=== PATIENT | female | born 1985 | race Two or more races ===

== ENCOUNTER 2019-11-20 22:44 | Inpatient (IN) | payer MEDICAID ==
[~2019-11-20] VITALS: Ht 157.5 cm; Wt 61.2 kg
--- NOTE | 2019-11-20 23:25 | NUR ---
Dr. chavez at bedside for MSE
[2019-11-20] MEDS ORDERED: KETOROLAC TROMETHAMINE 60 MG INJ IM ONE ×2 (23:45→23:48)
[2019-11-20 23:50] LABS: BASOPHILS % (AUTO) 0.3 % (0.0-2.0); EOSINOPHILS # (AUTO) 0.2 K/uL (0.0-0.7); EOSINOPHILS % (AUTO) 2.3 % (0.0-7.0); HEMATOCRIT 38.3 % (31.2-41.9); HEMOGLOBIN 12.7 g/dL (10.9-14.3); LYMPHOCYTES # (AUTO) 2.6 K/uL (20.0-40.0); LYMPHOCYTES % (AUTO) 39.5 % (20.5-51.5); MEAN CORPUSCULAR HEMOGLOBIN 30.5 uug (24.7-32.8); MEAN CORPUSCULAR HGB CONC 33 g/dL (32.3-35.6); MEAN CORPUSCULAR VOLUME 92.1 fL (75.5-95.3); MONOCYTES # (AUTO) 0.4 K/uL (2.0-10.0); MONOCYTES % (AUTO) 5.8 % (0.0-11.0); NEUTROPHILS # (AUTO) 3.5 K/uL (1.8-8.9); NEUTROPHILS % (AUTO) 52.1 % (38.5-71.5); PLATELET COUNT (AUTO) 238 K/uL (179-408); RED BLOOD CELL COUNT(AUTO) 4.15 MIL/uL (3.63-4.92); WHITE BLOOD COUNT (AUTO) 6.7 K/uL (3.8-11.8)
[2019-11-21] LABS: CREATININE 0.6 mg/dL (0.6-1.3); POTASSIUM 3.4 mmol/L (3.5-5.1)
--- NOTE | 2019-11-21 | NUR ---
Madhavi Nursing supervisor paper machine at bedside to terrazzo mechanic for pelvic exam
[2019-11-21 00:05] LABS: BILIRUBIN,DIRECT 0.2 mg/dL (0.0-0.2); BILIRUBIN,TOTAL 0.8 mg/dL (0.2-1.0); TOTAL PROTEIN, SERUM 7.6 g/dL (6.4-8.2)
[2019-11-21 00:20] LABS: *BILIRUBIN,URIN NEGATIVE (NEGATIVE); *CLARITY,URINE CLEAR (CLEAR); *COLOR,URINE YELLOW (YELLOW); *KETONES,URINE NEGATIVE (NEGATIVE); LEUKOCYTE ESTERASE ,URINE NEGATIVE (NEGATIVE); NITRITE, URINE NEGATIVE (NEGATIVE); PH,URINE 6.5 (5.0-8.0); UGLUCOSE NEGATIVE (NEGATIVE)
[2019-11-21 00:24] LABS: *BLOOD, URINE TRACE (NEGATIVE)
[2019-11-21 00:50] LABS: *URINE HCG, QUAL NEGATIVE (NEGATIVE); BACTERIA,URINE NONE SEEN /HPF (NONE SEEN); MUCUS,URINE FEW /LPF (0-FEW); RBC,URINE 0-3 /HPF (0-3); SQUAMOUS EPITHELIAL CELL,UR FEW /HPF (NONE SEEN); WBC,URINE 0-3 /HPF (0-3)
[2019-11-21] MEDS ORDERED: IOHEXOL 300MG/ML 100 ML INFUS..BTL ONE (01:00)
[2019-11-21] MEDS ORDERED: SWABABLE VALVE TRANSFER SET EA MC ONE (01:00)
[2019-11-21] MEDS ORDERED: IV NORMAL SALINE 250 ML IV ONE (01:00)
[2019-11-21] MEDS ORDERED: IV NS 1000 ML 1,000 ML IV ONE (01:45)
[2019-11-21] MEDS ORDERED: MORPHINE SULFATE 4 MG/1 ML DISP.SYRIN IV ONE (01:45)
[2019-11-21] MEDS ORDERED: PIPERACILLIN SODIUM/TAZOBACTAM 3.375 G in IV DEXTROSE 5% 50 ML IV ONE (01:45)
--- NOTE | 2019-11-21 01:45 | NUR ---
Dr. Jeffery on panel call with Ijeoma Sesay NP.
[2019-11-21] MEDS ORDERED: MORPHINE SULFATE 4 MG/1 ML DISP.SYRIN ONE (01:49)
[2019-11-21] MEDS ORDERED: PIPERACILLIN/TAZOBACTAM/D5W 50 ML IV ONE ×2 (01:49→03:17)
--- NOTE | 2019-11-21 01:49 | NUR ---
Dr. Jeffery speaking with Dr. West of surgery.
[2019-11-21] MEDS ORDERED: HYDROCODONE/APAP 5-325MG TABLET PO PRN (02:00)
[2019-11-21] MEDS ORDERED: IV NS 1000 ML 1,000 ML IV PRN (02:00)
[2019-11-21] MEDS ORDERED: ACETAMINOPHEN 325 MG TABLET PO PRN (02:00)
[2019-11-21] MEDS ORDERED: MORPHINE SULFATE 2 MG/1 ML DISP.SYRIN IV PRN (02:00)
[2019-11-21] MEDS ORDERED: ONDANSETRON 4 MG/2 ML VIAL IV PRN (02:00)
[2019-11-21] MEDS ORDERED: KETOROLAC TROMETHAMINE 15 MG INJ IVP PRN (02:00)
[2019-11-21] MEDS ORDERED: MAGNESIUM HYDROXIDE 30 ML LIQUID UDC PO PRN (02:00)
[2019-11-21] MEDS ORDERED: [UNRECOGNIZED DRUG - REMARK] PO (02:02)
--- NOTE | 2019-11-21 02:18 | NUR ---
Pt. admitted to Med Surg , under care of Ijeoma Sesay SURVEYING TECHNICIAN [place] [employer] completed. MRSA swab done
[2019-11-21] MEDS: POTASSIUM CHLORIDE 50 ML IV SCH ×2 (03:31→05:21)
[2019-11-21 04:40] VITALS: BP 135/76
[2019-11-21 05:52] LABS: BASOPHILS % (AUTO) 0.2 % (0.0-2.0); EOSINOPHILS # (AUTO) 0.1 K/uL (0.0-0.7); EOSINOPHILS % (AUTO) 1.9 % (0.0-7.0); HEMOGLOBIN 12.6 g/dL (10.9-14.3); LYMPHOCYTES # (AUTO) 2.1 K/uL (20.0-40.0); LYMPHOCYTES % (AUTO) 39.4 % (20.5-51.5); MEAN CORPUSCULAR HEMOGLOBIN 30.7 uug (24.7-32.8); MEAN CORPUSCULAR HGB CONC 33 g/dL (32.3-35.6); MEAN CORPUSCULAR VOLUME 92.5 fL (75.5-95.3); MONOCYTES # (AUTO) 0.3 K/uL (2.0-10.0); MONOCYTES % (AUTO) 6.5 % (0.0-11.0); NEUTROPHILS # (AUTO) 2.7 K/uL (1.8-8.9); PLATELET COUNT (AUTO) 219 K/uL (179-408); RED BLOOD CELL COUNT(AUTO) 4.11 MIL/uL (3.63-4.92); WHITE BLOOD COUNT (AUTO) 5.3 K/uL (3.8-11.8)
[2019-11-21] MEDS ORDERED: BUPIVACAINE/EPI PF 0.25% 30 ML VIAL ONE (05:59)
[2019-11-21 06:35] LABS: CREATININE 0.6 mg/dL (0.6-1.3); MAGNESIUM 1.9 mg/dL (1.8-2.4); PHOSPHOROUS 3.9 mg/dL (2.5-4.9); POTASSIUM 3.5 mmol/L (3.5-5.1)
--- NOTE | 2019-11-21 06:45 | NUR ---
Patient was taken to the OR by JENIFER Block.
[2019-11-21] MEDS ORDERED: PIPERACILLIN SODIUM/TAZOBACTAM 3.375 G in IV DEXTROSE 5% 50 ML IV SCH (07:00)
[2019-11-21] MEDS ORDERED: MIDAZOLAM HCL 2 MG/2 ML VIAL ONE (07:25)
[2019-11-21] MEDS ORDERED: ROCURONIUM BROMIDE 50 MG/5 ML VIAL ONE (07:26)
[2019-11-21] MEDS ORDERED: FENTANYL CITRATE 250 MCG/5 ML AMPUL ONE (07:26)
--- NOTE | 2019-11-21 07:30 | NUR ---
Patient in surgery upon arrival ;patient undergoing laparoscopic appendectomy.
[2019-11-21] MEDS ORDERED: PIPERACILLIN/TAZOBACTAM/D5W 3.375 G in IV DEXTROSE 5% 50 ML IV SCH (10:00)
[2019-11-21 10:30] VITALS: BP 95/51
[2019-11-21 11:00] VITALS: BP 111/68
[2019-11-21 11:30] VITALS: BP 120/59
[2019-11-21 16:00] VITALS: BP 99/57
--- NOTE | 2019-11-21 19:27 | NUR ---
Patient came back from surgery midday with stable baseline vital signs; patient with no signs of distress; patient cleared by surgery to go home ; MD then placed orders for patient to be discharged;Patient with stable vital signs; patient educated on discharge instructions; patient verbalized understanding . Patient left via private car with .
[2019-11-23 08:08] LABS: *GC NAA Negative (Negative); *TRIC.VAG. NAA Negative (Negative)
== END 2019-11-21 19:34 | disposition home or self-care (01) | DRG 234 ==
LOC: ER 22:44 → MEDSURG3 11-21 02:38
PROVIDERS: ADMIT Nurse Practitioner Acute Care
PROC: 0DTJ4ZZ Resection of Appendix, Percutaneous Endoscopic Approach (ICD-10-PCS; principal; 2019-11-21)
DX: K35.80 Unspecified acute appendicitis (principal); E66.9 Obesity, unspecified; E87.6 Hypokalemia; N70.11 Chronic salpingitis; N83.291 Other ovarian cyst, right side
CPT/HCPCS: 36415; 76856; 83690; 83735; 84100; 84703; 85025; 85730; 87491; G0378; J1885; J2250; J2270; J2543; J3010; J3490; J7030; J7040; J7050; J7060; Q9967

== ENCOUNTER 2019-12-21 19:10 | Emergency (ER) | payer MEDICAID ==
[~2019-12-21] VITALS: Ht 149.9 cm; Wt 54.4 kg
--- NOTE | 2019-12-21 22:27 | NUR ---
Patient discharged to home in stable conditon. Written and verbal after care instructions given. Patient verbalizes understanding of instructions.
[2019-12-21 22:29] VITALS: BP 110/69
== END 2019-12-21 22:29 | disposition home or self-care (01) ==
LOC: ER 19:14
DX: Z48.89 Encounter for other specified surgical aftercare (principal); Z48.02 Encounter for removal of sutures
CPT/HCPCS: A4663

== ENCOUNTER 2021-06-13 08:22 | Emergency (ER) | payer MEDICAID ==
[~2021-06-13] VITALS: Ht 152.4 cm; Wt 54.4 kg
[~2021-06-13 08:22] MED LIST: [UNRECOGNIZED DRUG - REMARK] PO
[2021-06-13 08:53] LABS: *BILIRUBIN,URIN NEGATIVE (NEGATIVE); *CLARITY,URINE CLEAR (CLEAR); *COLOR,URINE YELLOW (YELLOW); *KETONES,URINE NEGATIVE (NEGATIVE); *URINE HCG, QUAL NEG (NEGATIVE); *UROBILINOGEN,URINE 0.2 E.U./dl (NORMAL); LEUKOCYTE ESTERASE ,URINE TRACE (NEGATIVE); NITRITE, URINE NEGATIVE (NEGATIVE); UGLUCOSE NEGATIVE (NEGATIVE)
[2021-06-13 08:54] LABS: *BLOOD, URINE TRACE (NEGATIVE)
[2021-06-13 09:52] LABS: HEMATOCRIT 39.6 % (31.2-41.9); MEAN CORPUSCULAR HEMOGLOBIN 31.9 uug (24.7-32.8); MEAN CORPUSCULAR VOLUME 95.1 fL (75.5-95.3); PLATELET COUNT (AUTO) 282 K/uL (179-408)
[2021-06-13] MEDS ORDERED: SWABABLE VALVE TRANSFER SET EA MC ONE (09:53)
[2021-06-13] MEDS ORDERED: IOHEXOL 300MG/ML 100 ML INFUS..BTL ONE (09:54)
[2021-06-13] MEDS ORDERED: IV NORMAL SALINE 250 ML IV ONE (09:54)
[2021-06-13 09:56] LABS: CREATININE 0.6 mg/dL (0.6-1.3); POTASSIUM 3.8 mmol/L (3.5-5.1)
[2021-06-13 10:02] LABS: BILIRUBIN,TOTAL 0.9 mg/dL (0.2-1.0); TOTAL PROTEIN, SERUM 7.7 g/dL (6.4-8.2)
--- NOTE | 2021-06-13 10:09 | NUR ---
Pt to CT
--- NOTE | 2021-06-13 10:31 | NUR ---
Pt back from CT. U/[facility] bedside.
--- NOTE | 2021-06-13 10:43 | NUR ---
Female motor assembly supervisor accompanied female patient for ( [employer] tech ).
[2021-06-13] MEDS ORDERED: IBUP-1955 PO (11:34)
--- NOTE | 2021-06-13 11:45 | NUR ---
IV removed. Catheter intact and site benign. Pressure and 4x4 gauze applied to site. No bleeding noted. Patient discharged to home in stable condition. Written and verbal after care instructions given. Patient verbalizes understanding of instructions. Stressed follow up or return to ER for worsening s/s.
[2021-06-13 12:36] LABS: RBC,URINE 0-3 /HPF (0-3)
[2021-06-13 12:37] LABS: BACTERIA,URINE FEW /HPF (NONE SEEN); SQUAMOUS EPITHELIAL CELL,UR FEW /HPF (NONE SEEN); WBC,URINE 0-3 /HPF (0-3)
== END 2021-06-13 12:46 | disposition home or self-care (01) ==
LOC: ER 08:23
DX: R10.32 Left lower quadrant pain (principal); N70.11 Chronic salpingitis; N83.202 Unspecified ovarian cyst, left side
CPT/HCPCS: 36415; 74177; 76856; 80053; 81001; 83690; 84702; 84703; 85025; 99285; Q9967; A4663; J7050

== ENCOUNTER 2023-03-11 20:17 | Emergency (ER) | payer MEDICAID ==
[~2023-03-11] VITALS: Ht 152.4 cm; Wt 61.2 kg
[~2023-03-11 20:17] MED LIST changes: +IBUP-1955 PO
--- NOTE | 2023-03-11 20:36 | NUR ---
Patient placed in Room 2A
[2023-03-11] MEDS ORDERED: ONDANSETRON 4 MG/2 ML VIAL IV ONE (21:00)
[2023-03-11] MEDS ORDERED: HYDROMORPHONE 1 MG/1 ML DISP.SYRIN IV ONE (21:00)
[2023-03-11 21:15] LABS: HEMATOCRIT 40.6 % (31.2-41.9); MEAN CORPUSCULAR HEMOGLOBIN 30.9 uug (24.7-32.8); MEAN CORPUSCULAR VOLUME 91.8 fL (75.5-95.3); PLATELET COUNT (AUTO) 291 K/uL (179-408)
[2023-03-11 21:27] LABS: CREATININE 0.7 mg/dL (0.6-1.3); POTASSIUM 3.9 mmol/L (3.5-5.1)
[2023-03-11 21:33] LABS: BILIRUBIN,DIRECT 0.1 mg/dL (0.0-0.2); BILIRUBIN,TOTAL 0.6 mg/dL (0.2-1.0); TOTAL PROTEIN, SERUM 7.2 g/dL (6.4-8.2)
[2023-03-11 21:33] LABS: *BILIRUBIN,URIN NEGATIVE (NEGATIVE); *BLOOD, URINE NEGATIVE (NEGATIVE); *CLARITY,URINE CLEAR (CLEAR); *COLOR,URINE YELLOW (YELLOW); *KETONES,URINE NEGATIVE (NEGATIVE); *UROBILINOGEN,URINE 0.2 E.U./dl (NORMAL); LEUKOCYTE ESTERASE ,URINE NEGATIVE (NEGATIVE); NITRITE, URINE NEGATIVE (NEGATIVE); PH,URINE 5.5 (5.0-8.0); UGLUCOSE NEGATIVE (NEGATIVE)
[2023-03-11] MEDS ORDERED: ONDANSETRON 4 MG/2 ML VIAL ONE (21:36)
[2023-03-11] MEDS ORDERED: HYDROMORPHONE 1 MG/1 ML DISP.SYRIN ONE (21:36)
[2023-03-11] MEDS ORDERED: IOHEXOL 300MG/ML 100 ML INFUS..BTL ONE (21:46)
[2023-03-11] MEDS ORDERED: SWABABLE VALVE TRANSFER SET EA MC ONE (21:47)
[2023-03-11] MEDS ORDERED: IV NORMAL SALINE 250 ML IV ONE (21:47)
[2023-03-11 21:49] LABS: *URINE HCG, QUAL NEG (NEGATIVE)
--- NOTE | 2023-03-11 22:00 | NUR ---
Patient taken to CT via [place] accompanied by
--- NOTE | 2023-03-11 22:28 | NUR ---
Patient ambulated to the bathroom indepedently. Activity tolerated well
[2023-03-12] MEDS ORDERED: HYDR-4209 PO ×2 (00:25→00:30)
--- NOTE | 2023-03-12 00:38 | NUR ---
Patient discharged to home in stable condition. Written and verbal after care instructions given. Patient verbalizes understanding of instructions. Stressed follow up or return to ER for worsening s/s.
[2023-03-12 01:18] VITALS: BP 105/75
== END 2023-03-12 00:38 | disposition home or self-care (01) ==
LOC: ER 20:17
DX: R10.32 Left lower quadrant pain (principal); R07.89 Other chest pain; Z90.49 Acquired absence of other specified parts of digestive tract; Z79.1 Long term (current) use of non-steroidal anti-inflammatories (NSAID); Z79.899 Other long term (current) drug therapy; Z20.822 Contact with and (suspected) exposure to COVID-19
CPT/HCPCS: 99285; 74177; 96374; 76705; 71045; 96375; 87426; 80076; 80048; 81003; 84703; 83690; 85025; 36415; J2405; Q9967; J1170; A4663

== ENCOUNTER 2023-09-15 08:57 | Emergency (ER) | payer MEDICAID ==
[~2023-09-15] VITALS: Ht 157.5 cm; Wt 63.5 kg
[~2023-09-15 08:57] MED LIST changes: +CEPH500C2 PO; +HYDR-4209 PO
[2023-09-15 09:12] LABS: BASOPHILS % (AUTO) 0.1 % (0.0-2.0); HEMATOCRIT 41.2 % (31.2-41.9); HEMOGLOBIN 13.8 g/dL (10.9-14.3); LYMPHOCYTES # (AUTO) 1.3 K/uL (0.8-4.8); LYMPHOCYTES % (AUTO) 20.2 % (20.5-51.5); MEAN CORPUSCULAR HEMOGLOBIN 31.2 uug (24.7-32.8); MEAN CORPUSCULAR HGB CONC 34 g/dL (32.3-35.6); MONOCYTES # (AUTO) 0.5 K/uL (0.1-1.30); MONOCYTES % (AUTO) 8.2 % (0.0-11.0); NEUTROPHILS # (AUTO) 4.8 K/uL (1.8-8.9); NEUTROPHILS % (AUTO) 71.5 % (38.5-71.5); PLATELET COUNT (AUTO) 248 K/uL (179-408); RED BLOOD CELL COUNT(AUTO) 4.42 MIL/uL (3.63-4.92); RED CELL DISTRIBUTION WIDTH 14.4 % (12.3-17.7); WHITE BLOOD COUNT (AUTO) 6.7 K/uL (3.8-11.8)
[2023-09-15 09:19] LABS: CALCIUM 8.9 mg/dL (8.5-10.1); CREATININE 0.6 mg/dL (0.6-1.3); POTASSIUM 3.9 mmol/L (3.5-5.1)
[2023-09-15 09:22] LABS: *BILIRUBIN,URIN NEGATIVE (NEGATIVE); *BLOOD, URINE 2+ (NEGATIVE); *CLARITY,URINE CLEAR (CLEAR); *COLOR,URINE YELLOW (YELLOW); *KETONES,URINE NEGATIVE (NEGATIVE); *PROTEIN,URINE NEGATIVE (NEGATIVE); *UROBILINOGEN,URINE 0.2 E.U./dl (NORMAL); LEUKOCYTE ESTERASE ,URINE 1+ (NEGATIVE); NITRITE, URINE NEGATIVE (NEGATIVE); UGLUCOSE NEGATIVE (NEGATIVE)
[2023-09-15 09:25] LABS: ALBUMIN 3.6 g/dL (3.4-5.0); BILIRUBIN,DIRECT 0.2 mg/dL (0.0-0.2); BILIRUBIN,TOTAL 0.9 mg/dL (0.2-1.0); DIFFERENTIAL COMMENT 1; TOTAL PROTEIN, SERUM 7.3 g/dL (6.4-8.2)
[2023-09-15 09:39] LABS: *URINE HCG, QUAL NEGATIVE (NEGATIVE)
[2023-09-15] MEDS ORDERED: IV NORMAL SALINE 1000 ML BAG IV ONE (10:00)
[2023-09-15] MEDS ORDERED: ONDANSETRON 4 MG/2 ML VIAL IV ONE (10:00)
[2023-09-15] MEDS ORDERED: ONDA4TAB5 PO (10:00)
[2023-09-15 10:04] LABS: BACTERIA,URINE FEW /HPF (NONE SEEN); SQUAMOUS EPITHELIAL CELL,UR MANY /HPF (NONE SEEN)
[2023-09-15] MEDS ORDERED: ONDANSETRON 4 MG/2 ML VIAL ONE (10:08)
[2023-09-15] MEDS ORDERED: IBUP-1955 PO (10:14)
[2023-09-15] MEDS ORDERED: CIPR500T5 PO (10:14)
[2023-09-15 11:23] VITALS: BP 113/66; TEMP 98; O2SAT 99
== END 2023-09-15 11:24 | disposition home or self-care (01) ==
LOC: ER 08:57
DX: R10.84 Generalized abdominal pain (principal); R11.2 Nausea with vomiting, unspecified; R19.7 Diarrhea, unspecified; N39.0 Urinary tract infection, site not specified; Z90.49 Acquired absence of other specified parts of digestive tract; Z79.1 Long term (current) use of non-steroidal anti-inflammatories (NSAID); Z79.899 Other long term (current) drug therapy
CPT/HCPCS: 99283; 96374; 96361; 80076; 80048; 81001; 84703; 83690; 85025; 36415; J2405; J7040; A4606; A4663